=== PATIENT | female | born 1995 | race Two or more races ===

== ENCOUNTER 2018-12-11 13:10 | Emergency (ER) | payer OTHER ==
--- NOTE | 2018-12-11 16:03 | ED Physician Documentation ---
PD HPI URI - Stated complaint Stated Complaint: SORE THROAT - Chief complaint Chief Complaint: Heent - History obtained from History obtained from: Patient - History of Present Illness Timing - onset: How many days ago (2-3) Timing duration: Days Timing details: Gradual onset, Still present Associated symptoms: Sinus pain, Sore throat. No: Nasal congestion, Dry cough Contributing factors: No: Sick contact Similar symptoms before: No diagnosis (has had recurrent sore throat episodes but has had negative strep tests and cultures.) Review of Systems Constitutional: denies: Fever, Chills Ears: denies: Ear pain Nose: reports: Sinus pressure / pain Throat: reports: Sore throat, Swollen tonsils. denies: Dental pain / toothache Respiratory: denies: Cough GI: denies: Nausea, Vomiting, Diarrhea PD PAST MEDICAL HISTORY - Past Medical History Cardiovascular: None Respiratory: None Neuro: None Endocrine/Autoimmune: None - Present Medications Home Medications: Ambulatory Orders Medication Instructions Recorded Confirmed Cephalexin [Keflex] 500 mg PO TID #21 capsule 12/11/18 Cetirizine [ZyrTEC] 10 mg PO DAILY #30 tablet 12/11/18 Dexamethasone [Decadron] 4 mg PO DAILY #5 tablet 12/11/18 Fluconazole [Diflucan] 150 mg PO ONCE #1 tablet 12/11/18 Fluticasone [Flonase] 2 sprays DANE DAILY #1 bottle 12/11/18 - Allergies Allergies/Adverse Reactions: Allergies Allergy/AdvReac Type Severity Reaction Status Date / Time Pertussis Vaccines Allergy Anaphylaxis Verified 12/11/18 13:31 PD ED PE NORMAL - Vitals Vital signs reviewed: Yes - General General: Alert and oriented X 3, No acute distress, Well developed/nourished - HEENT HEENT: Ears normal. No: Pharynx benign (tonsils and throat with redness but not exudate. Anterior adenopathy noted. ) - Neck Neck: Supple, no meningeal sign - Cardiac Cardiac: RRR, No murmur - Respiratory Respiratory: Clear bilaterally Results - Vitals Vitals: Oxygen O2 Source Room air - Labs Labs: Microbiology 12/11/18 16:17 Group A Strep Throat Culture - Preliminary Throat CULTURE IN PROGRESS. RESULTS TO FOLLOW. Laboratory Tests 12/11/18 16:17 Group A Strep Rapid Negative PD MEDICAL DECISION MAKING - ED course Complexity details: considered differential (symptoms seem like throat, but have been negative strep tests. Has congestion, so I think is sinus infection. ), d/w patient Departure - Departure Disposition: 01 Home, Self Care Clinical Impression: Sinusitis Qualifiers: Sinusitis location: unspecified location Chronicity: acute Recurrence: recurrent Qualified Code(s): J01.91 - Acute recurrent sinusitis, unspecified Condition: Stable Record reviewed to determine appropriate education?: Yes Instructions: ED Sinusitis Abx Tx Follow-Up: [facility] [Provider Group] Prescriptions: Cephalexin [Keflex] 500 mg PO TID #21 capsule Cetirizine [ZyrTEC] 10 mg PO DAILY #30 tablet Dexamethasone [Decadron] 4 mg PO DAILY #5 tablet Fluconazole [Diflucan] 150 mg PO ONCE #1 tablet Fluticasone [Flonase] 2 sprays DANE DAILY #1 bottle Comments: I think your throat symptoms are coming from sinus congestion and intermittent infection. We will treated with cephalexin antibiotic 3 times a day for a week and Decadron steroid daily for 5 days for the current infection and inflammation. Use cetirizine antihistamine daily for 1 or 2 months and also Flonase nasal spray daily for 1 or 2 months and see if overall you have less sinus symptoms and do not have the recurrent throat symptoms. Follow-up with your primary care if not improved over the next few days. At the end of the week of the antibiotics he can use a oral antifungal to prevent yeast infection. Tylenol or ibuprofen if needed for fevers or pains. Discharge Date/Time: 12/11/18 16:25
[2018-12-11] MEDS ORDERED: DEXAMETHASONE 10 MG/ML VIAL PO STA (16:04)
[2018-12-11] MEDS ORDERED: cephALEXin 250 MG CAPSULE PO STA (16:04)
[2018-12-11] MEDS ORDERED: CETIRIZINE 10 MG TABLET PO STA (16:04)
[2018-12-11] MEDS ORDERED: CHERRY SYRUP 10 ML UDC PO ONE (16:15)
[2018-12-11 16:21] VITALS: BP 127/69
== END 2018-12-11 16:25 | disposition home or self-care (01) ==
LOC: ED 13:10
DX: J01.91 Acute recurrent sinusitis, unspecified (principal)
CPT/HCPCS: 87070; 87430; 99283; A9270

== ENCOUNTER 2018-12-24 18:13 | Emergency (ER) | payer OTHER, MEDICAID ==
[2018-12-24 18:50] LABS: BILIRUBIN,URINE NEGATIVE (NEGATIVE); GLUCOSE, URINE (UA) NEGATIVE (NEGATIVE); KETONES,URINE (UA) NEGATIVE (NEGATIVE); LEUKOCYTE ESTERASE, URINE NEGATIVE (NEGATIVE); NITRITE,URINE NEGATIVE (NEGATIVE); OCCULT BLOOD,URINE TRACE-INTA (NEGATIVE); PROTEIN,URINE NEGATIVE (NEGATIVE); UROBILINOGEN,URINE 0.2 (NORMAL) E.U./dL (NORMAL)
[2018-12-24 18:54] LABS: CLARITY,URINE CLEAR (CLEAR); HCG UR QUAL NEGATIVE
--- NOTE | 2018-12-24 19:24 | ED Physician Documentation ---
History of Present Illness - Stated complaint Stated Complaint: FEM - Chief complaint Chief Complaint: General - History obtained from History obtained from: Patient - History of Present Illness Timing: Other (23-year-old woman who was diagnosed with clinical strep throat about 10 days ago and was on antibiotics. She has since finished the antibiotics but developed vaginal itching. She took fluconazole which was briefly helpful but then she kept itching at it and put some creams on it and it kept getting worse and now is quite inflamed. She denies vaginal discharge. She is on her menses right now.) Review of Systems Constitutional: denies: Fever, Chills Throat: denies: Dental pain / toothache, Sore throat Cardiac: denies: Chest pain / pressure, Palpitations Respiratory: denies: Dyspnea, Cough PD PAST MEDICAL HISTORY - Past Medical History Cardiovascular: None Respiratory: None Neuro: None Endocrine/Autoimmune: None - Past Surgical History Past Surgical History: Yes - Present Medications Home Medications: Ambulatory Orders Medication Instructions Recorded Confirmed Cephalexin [Keflex] 500 mg PO TID #21 capsule 12/11/18 Dexamethasone [Decadron] 4 mg PO DAILY #5 tablet 12/11/18 Fluconazole [Diflucan] 150 mg PO ONCE #1 tablet 12/11/18 Fluticasone [Flonase] 2 sprays DANE DAILY #1 bottle 12/11/18 RX: Cetirizine [ZyrTEC] 10 mg PO DAILY #30 tablet 12/11/18 RX: Triamcinolone 0.1% Oint 1 applic TOP BID #2 tube 12/24/18 [Kenalog 0.1% Oint] hydrOXYzine pamoate [Hydroxyzine 1 - 2 tab PO Q6H PRN #20 capsule 12/24/18 Pamoate] - Allergies Allergies/Adverse Reactions: Allergies Allergy/AdvReac Type Severity Reaction Status Date / Time Pertussis Vaccines Allergy Anaphylaxis Verified 12/24/18 18:19 - Social History Does the pt smoke?: No Smoking Status: Never smoker Does the pt drink ETOH?: No Does the pt have substance abuse?: No - Immunizations Immunizations are current?: Yes PD ED PE NORMAL - Vitals Vital signs reviewed: Yes - General General: Alert and oriented X 3, No acute distress - Abdomen Abdomen: Normal bowel sounds, Soft, Non tender - Female Female : Other (Labia quite red, mild swelling. On menses, no other obvious dischg) - Back Back: No CVA TTP, No spinal TTP - Derm Derm: No rash - Neuro Neuro: Alert and oriented X 3, Normal speech Results - Vitals Vitals: Vital Signs - 24 hr 12/24/18 12/24/18 18:19 20:06 Temperature 36.6 C 36.5 C Heart Rate 85 93 Respiratory 16 16 Rate Blood Pressure 121/79 135/95 H O2 Saturation 99 100 Oxygen O2 Source Room air - Labs Labs: Microbiology 12/24/18 19:30 Wet Prep - Final Vaginal Laboratory Tests 12/24/18 18:40 Urine Color YELLOW Urine Clarity CLEAR Urine pH 6.0 Ur Specific [place] 1.010 Urine Protein NEGATIVE Urine Glucose (UA) NEGATIVE Urine Ketones NEGATIVE Urine Occult Blood TRACE-INTA Urine Nitrite NEGATIVE Urine Bilirubin NEGATIVE Urine Urobilinogen 0.2 (NORMAL) Ur Leukocyte Esterase NEGATIVE Ur Microscopic Review NOT INDICATED Urine Culture Comments NOT INDICATED Urine HCG, Qual NEGATIVE PD MEDICAL DECISION MAKING - ED course ED course: There is no evidence of yeast infection now, seems more like a dermatitis related to the variety of medications he she was using on her vagina. She was advised not to use so many creams on her vagina and was given a moderate strength steroid. Departure - Departure Disposition: 01 Home, Self Care Clinical Impression: Contact dermatitis Qualifiers: Contact dermatitis type: irritant Contact dermatitis trigger: drugs in contact with skin Qualified Code(s): L24.4 - Irritant contact dermatitis due to drugs in contact with skin Condition: Good Record reviewed to determine appropriate education?: Yes Instructions: ED Dermatitis Contact Prescriptions: hydrOXYzine pamoate [Hydroxyzine Pamoate] 1 - 2 tab PO Q6H PRN #20 capsule PRN Reason: Itching RX: Triamcinolone 0.1% Oint [Kenalog 0.1% Oint] 1 applic TOP BID #2 tube Comments: Call your doctor to arrange a follow-up appointment, make the next available appointment. In the interim, return anytime if worse or if new symptoms develop. Discharge Date/Time: 12/24/18 20:09
[2018-12-24] MEDS ORDERED: NYSTATIN CREAM 15 GM TUBE TOP STA (19:29)
[2018-12-24] MEDS ORDERED: hydrOXYzine PAMOATE 25 MG CAPSULE PO STA (20:00)
[2018-12-24 20:08] VITALS: BP 135/95
== END 2018-12-24 20:09 | disposition home or self-care (01) ==
LOC: ED 18:13
DX: L24.4 Irritant contact dermatitis due to drugs in contact with skin (principal)
CPT/HCPCS: 81003; 81025; 87210; 87491; 87591; 99283; A9270; 81001; 87086

== ENCOUNTER 2019-03-05 09:53 | Emergency (ER) | payer OTHER, MEDICAID ==
[2019-03-05 10:00] VITALS: BP 126/79
--- NOTE | 2019-03-05 10:42 | ED Physician Documentation ---
PD HPI Fall - Stated complaint Stated Complaint: GLF/BACK PX - Chief complaint Chief Complaint: General - History obtained from History obtained from: Patient, Family - History of Present Illness Mechanism of injury: Slipped Fall distance: Standing position Where injury occurred: Work Timing - onset: Enter time (0800), Today Injury(ies) location: Right Upper Extremity, Left Lower Extremity Quality of pain: Pain, Throbbing Associated symptoms: No: LOC, AMS, Amnesia, Seizures Symptoms improve with: Rest Worsens with: Movement, Palpation Contributing factors: No: Anticoagulated Similar symptoms before: Has not had sx before Recently seen: Not recently seen - Additional information Additional information: Previously well 23-year-old female was at work today when she slipped on some water as she was approaching a client. She fell onto her outstretched right hand and is complaining of pain in her volar wrist and posterior shoulder as well as in her left knee and foot. She is able to walk and she states the pain in her knee has improved. Review of Systems Constitutional: denies: Fever Eyes: denies: Decreased vision Ears: denies: Ear pain Nose: denies: Rhinorrhea / runny nose, Congestion Throat: denies: Sore throat Cardiac: denies: Chest pain / pressure, Palpitations Respiratory: denies: Dyspnea, Cough GI: denies: Nausea, Vomiting : denies: Dysuria PD PAST MEDICAL HISTORY - Past Medical History Cardiovascular: None Respiratory: None Neuro: None Endocrine/Autoimmune: None - Past Surgical History Past Surgical History: Yes - Present Medications Home Medications: Ambulatory Orders Medication Instructions Recorded Confirmed Cephalexin [Keflex] 500 mg PO TID #21 capsule 12/11/18 Cetirizine [ZyrTEC] 10 mg PO DAILY #30 tablet 12/11/18 Fluconazole [Diflucan] 150 mg PO ONCE #1 tablet 12/11/18 Fluticasone [Flonase] 2 sprays DANE DAILY #1 bottle 12/11/18 dexAMETHasone [Decadron] 4 mg PO DAILY #5 tablet 12/11/18 Triamcinolone 0.1% Oint [Kenalog 1 applic TOP BID #2 tube 12/24/18 0.1% Oint] hydrOXYzine pamoate [Hydroxyzine 1 - 2 tab PO Q6H PRN #20 capsule 12/24/18 Pamoate] - Allergies Allergies/Adverse Reactions: Allergies Allergy/AdvReac Type Severity Reaction Status Date / Time Pertussis Vaccines Allergy Anaphylaxis Verified 03/05/19 09:58 - Social History Does the pt smoke?: No Smoking Status: Never smoker Does the pt drink ETOH?: No Does the pt have substance abuse?: No - Immunizations Immunizations are current?: Yes - POLST Patient has POLST: No PD ED PE NORMAL - Vitals Vital signs reviewed: Yes (normal ) - General General: Alert and oriented X 3, No acute distress, Well developed/nourished - HEENT HEENT: Atraumatic, PERRL, EOMI - Neck Neck: Supple, no meningeal sign, No bony TTP - Respiratory Respiratory: No respiratory distress - Back Back: No CVA TTP, No spinal TTP - Derm Derm: Normal color, Warm and dry, No rash - Extremities Extremities: No deformity, No edema, Other (There is Tenderness to the volar wrist on the right side there is no tenderness to the anatomic snuffbox. She has fair range of motion and and the distal neurovascular components are intact. Examination of the shoulder reveals a fair range of motion that is somewhat limited by pain. She does have some pain to palpation across the rhomboids and over the supraspinatus. She has anterior deltoid pain as well. Examination of the left knee shows minimal point tenderness and ligaments are stable there is no evidence of joint effusion and distal neurovascular components are intact. Her gait is normal.) - Neuro Neuro: Alert and oriented X 3, wool washer 2-12 intact, No motor deficit, No sensory deficit, Normal speech Eye Opening: Spontaneous Motor: Obeys Commands Verbal: Oriented GCS Score: 15 - Psych Psych: Normal mood, Normal affect Results - Vitals Vitals: Vital Signs - 24 hr 03/05/19 09:55 Temperature 36.7 C Heart Rate 89 Respiratory 14 Rate Blood Pressure 126/79 O2 Saturation 100 Oxygen O2 Source Room air - Rads (name of study) wrist Radiology: Prelim report reviewed (Impression: normal wrist radiography.), EMP read indepedently, See rad report shoulder Radiology: Prelim report reviewed (Impression: Normal shoulder radiography.), EMP read indepedently, See rad report PD MEDICAL DECISION MAKING - ED course Complexity details: reviewed results, re-evaluated patient, considered differential, d/w patient ED course: 23-year-old female with a fall at work slipping on wet floor has a minimal sprain of her shoulder and wrist on the right side. We will place her into a sling for comfort. Departure - Departure Disposition: 01 Home, Self Care Clinical Impression: Sprain of shoulder, right Qualifiers: Encounter type: initial encounter Shoulder sprain type: unspecified sprain Qualified Code(s): S43.401A - Unspecified sprain of right shoulder joint, initial encounter Contusion, wrist Qualifiers: Encounter type: initial encounter Laterality: right Qualified Code(s): S60.211A - Contusion of right wrist, initial encounter Condition: Stable Instructions: ED Sprain Shoulder, ED Sprain Wrist Follow-Up: Patrick Beltran [Primary Care Provider] - Forms: Activity restrictions
--- NOTE | 2019-03-05 11:46 | XRAY Report ---
Reason: fall posterior pain Procedure Date: 03/05/2019 Accession Number: [id number] / [id number] Procedure: XR - Shoulder 3 View RT CPT Code: FULL RESULT: EXAM: RIGHT SHOULDER RADIOGRAPHY EXAM DATE: 03/05/2019 11:29 AM. CLINICAL HISTORY: Fall posterior pain. COMPARISON: None. TECHNIQUE: 3 views. FINDINGS: Bones: Normal. No fracture or bone lesion. Joints: The glenohumeral and acromioclavicular joints are normal. Soft tissues: The visualized hemithorax is unremarkable. No soft tissue swelling. IMPRESSION: Normal shoulder radiography. RADIA
--- NOTE | 2019-03-05 11:47 | XRAY Report ---
Reason: FOOSH with volar wrist pain Procedure Date: 03/05/2019 Accession Number: [id number] / [id number] Procedure: XR - Wrist 4 View RT CPT Code: FULL RESULT: EXAM: RIGHT WRIST RADIOGRAPHY EXAM DATE: 03/05/2019 11:29 AM. CLINICAL HISTORY: FOOSH with volar wrist pain. COMPARISON: None. TECHNIQUE: 4 views. FINDINGS: Bones: Normal. No fractures or bone lesions. Joints: Normal. No subluxations. Soft Tissues: Normal. No soft tissue swelling. IMPRESSION: Normal wrist radiography. RADIA
== END 2019-03-05 12:00 | disposition home or self-care (01) ==
LOC: ED 09:53
DX: S43.401A Unspecified sprain of right shoulder joint, initial encounter (principal); S60.211A Contusion of right wrist, initial encounter; M25.562 Pain in left knee; W01.0XXA Fall on same level from slipping, tripping and stumbling without subsequent striking against object, initial encounter; Y93.01 Activity, walking, marching and hiking; Y99.0 Civilian activity done for income or pay
CPT/HCPCS: 99282; 99283

== ENCOUNTER 2019-03-25 14:47 | Emergency (ER) | payer OTHER, MEDICAID ==
[2019-03-25 15:22] LABS: BILIRUBIN,URINE NEGATIVE (NEGATIVE); GLUCOSE, URINE (UA) NEGATIVE (NEGATIVE); KETONES,URINE (UA) NEGATIVE (NEGATIVE); LEUKOCYTE ESTERASE, URINE SMALL (NEGATIVE); NITRITE,URINE NEGATIVE (NEGATIVE); OCCULT BLOOD,URINE SMALL (NEGATIVE); PH,URINE 5.5 PH (5.0-7.5); PROTEIN,URINE 30 mg/dL (NEGATIVE); UROBILINOGEN,URINE 0.2 (NORMAL) E.U./dL (NORMAL)
[2019-03-25 15:23] LABS: CLARITY,URINE CLEAR (CLEAR)
[2019-03-25 15:24] LABS: HCG UR QUAL NEGATIVE
[2019-03-25 15:44] LABS: BASOPHILS # (AUTO) 0.1 10^3/uL (0.0-0.1); BASOPHILS % (AUTO) 0.5 %; EOSINOPHILS # (AUTO) 0.2 10^3/uL (0.0-0.7); HGB - HEMOGLOBIN 12.5 g/dL (12.0-16.0); LYMPHOCYTES # (AUTO) 2.1 10^3/uL (1.5-3.5); LYMPHOCYTES % (AUTO) 21.1 %; MEAN CORPUSCULAR HEMOGLOBIN 29.5 pg (27.0-31.0); MEAN CORPUSCULAR HGB CONC 33.4 g/dL (32.0-36.0); MEAN CORPUSCULAR VOLUME 88.3 fL (81.0-99.0); MEAN PLATELET VOLUME 8.5 fL (7.9-10.8); MONOCYTES # (AUTO) 0.8 10^3/uL (0.0-1.0); MONOCYTES % (AUTO) 7.9 %; NEUTROPHILS # (AUTO) 6.7 10^3/uL (1.5-6.6); NEUTROPHILS % (AUTO) 68.5 %; PLT - PLATELET COUNT 327 10^3/uL (130-450); RED BLOOD COUNT 4.24 10^6/uL (4.20-5.40); RED CELL DISTRIBUTION WIDTH 12.8 % (12.0-15.0); WHITE BLOOD COUNT 9.7 x10^3/uL (4.8-10.8)
[2019-03-25 15:54] LABS: BACTERIA,URINE Few /HPF (None Seen); RBC,URINE 0-5 /HPF (0-5); SQUAMOUS EPITHELIAL CELL,UR MANY Squamous (<= Few)
[2019-03-25 15:55] LABS: YEAST,URINE PRESENT
[2019-03-25 16:00] LABS: ALBUMIN 4.3 g/dL (3.2-5.5); ALBUMIN/GLOBULIN RATIO 1.3 (1.0-2.2); BILIRUBIN,TOTAL 0.6 mg/dL (0.2-1.0); CALCIUM 9.6 mg/dL (8.5-10.3); CREATININE 0.8 mg/dL (0.4-1.0); TOTAL PROTEIN 7.6 g/dL (6.7-8.2)
--- NOTE | 2019-03-25 17:50 | ED Physician Documentation ---
PD HPI FEMALE - Stated complaint Stated Complaint: FEMALE - Chief complaint Chief Complaint: Abd Pain - History obtained from History obtained from: Patient - History of Present Illness Timing - onset: How many days ago (several) Timing - duration: Days Timing - details: Gradual onset, Still present Associated symptoms: Pelvic pain (crampy), Vaginal discharge, Dysuria, Other (red blood rectally when wiping after BM) Contributing factors: Sexually active. No: Exposed to STD Similar symptoms before: Diagnosis (UTIs and yeast infections. Has had hemorrhoids in the past as well.) Recently seen: Not recently seen Review of Systems Constitutional: denies: Fever, Chills, Myalgias Nose: denies: Rhinorrhea / runny nose, Congestion Throat: denies: Sore throat Respiratory: denies: Cough GI: reports: Bloody / black stool (red with wiping). denies: Nausea, Vomiting, Constipation, Diarrhea : reports: Dysuria (and hurts with wiping), Discharge Skin: denies: Rash, Lesions Musculoskeletal: denies: Neck pain, Back pain PD PAST MEDICAL HISTORY - Past Medical History Cardiovascular: None Respiratory: None Neuro: None Endocrine/Autoimmune: None - Past Surgical History Past Surgical History: Yes - Present Medications Home Medications: Ambulatory Orders Medication Instructions Recorded Confirmed Cephalexin [Keflex] 500 mg PO TID #21 capsule 12/11/18 Cetirizine [ZyrTEC] 10 mg PO DAILY #30 tablet 12/11/18 Fluconazole [Diflucan] 150 mg PO ONCE #1 tablet 12/11/18 Fluticasone [Flonase] 2 sprays DANE DAILY #1 bottle 12/11/18 dexAMETHasone [Decadron] 4 mg PO DAILY #5 tablet 12/11/18 Triamcinolone 0.1% Oint [Kenalog 1 applic TOP BID #2 tube 12/24/18 0.1% Oint] hydrOXYzine pamoate [Hydroxyzine 1 - 2 tab PO Q6H PRN #20 capsule 12/24/18 Pamoate] Fluconazole [Diflucan] 150 mg PO ONCE #2 tablet 03/25/19 Hydrocortisone Acetate [Anucort-Hc] 25 mg RC BID #10 supp.rect 03/25/19 Metronidazole [Flagyl] 500 mg PO BID #14 tablet 03/25/19 - Allergies Allergies/Adverse Reactions: Allergies Allergy/AdvReac Type Severity Reaction Status Date / Time Pertussis Vaccines Allergy Anaphylaxis Verified 03/25/19 14:56 - Social History Does the pt smoke?: No Smoking Status: Never smoker Does the pt drink ETOH?: No Does the pt have substance abuse?: No - Immunizations Immunizations are current?: Yes - POLST Patient has POLST: No PD ED PE NORMAL - Vitals Vital signs reviewed: Yes - General General: Alert and oriented X 3, No acute distress, Well developed/nourished - HEENT HEENT: Pharynx benign - Neck Neck: Supple, no meningeal sign, No adenopathy - Cardiac Cardiac: RRR, No murmur - Respiratory Respiratory: Clear bilaterally - Abdomen Abdomen: Soft, Non tender - Female Female : Tipple Greaser present, Other (redness at inner labia with some white thicker discharge in creases. Vault with thinner milky discharge as well, with some malodor. ) - Rectal Rectal: Other (external small nontender hemorrhoid. Moderate soft hemorrhoid internally. No blood in vault on exam. ) - Derm Derm: Normal color, Warm and dry Results - Vitals Vitals: Vital Signs - 24 hr 03/25/19 03/25/19 03/25/19 14:54 17:46 19:10 Temperature 36.7 C 36.9 C Heart Rate 81 71 Respiratory 18 18 17 Rate Blood Pressure 117/73 111/71 O2 Saturation 98 100 Oxygen O2 Source Room air - Labs Labs: Microbiology 03/25/19 18:40 Wet Prep - Final Vaginal Laboratory Tests 03/25/19 03/25/19 03/25/19 15:07 15:25 15:25 WBC 9.7 RBC 4.24 Hgb 12.5 Hct 37.4 MCV 88.3 MCH 29.5 MCHC 33.4 RDW 12.8 Plt Count 327 MPV 8.5 Neut # (Auto) 6.7 H Lymph # (Auto) 2.1 [place] # (Auto) 0.8 Eos # (Auto) 0.2 Baso # (Auto) 0.1 Absolute Nucleated RBC 0.00 Nucleated RBC % 0.0 Sodium 140 Potassium 4.3 Chloride 106 Carbon Dioxide 23 Anion Gap 11.0 BUN 14 Creatinine 0.8 Estimated GFR (MDRD) 90 Glucose 91 Calcium 9.6 Total Bilirubin 0.6 AST 22 ALT 23 Alkaline Phosphatase 49 Total Protein 7.6 Albumin 4.3 Globulin 3.3 Albumin/Globulin Ratio 1.3 Lipase 22 Urine Color YELLOW Urine Clarity CLEAR Urine pH 5.5 Ur Specific [place] >=1.030 H Urine Protein 30 H Urine Glucose (UA) NEGATIVE Urine Ketones NEGATIVE Urine Occult Blood SMALL H Urine Nitrite NEGATIVE Urine Bilirubin NEGATIVE Urine Urobilinogen 0.2 (NORMAL) Ur Leukocyte Esterase SMALL H Urine RBC 0-5 Urine WBC 6-10 H Ur Squamous Epith Cells MANY Squamous H Urine Bacteria Few Urine Yeast PRESENT Ur Microscopic Review INDICATED Urine Culture Comments NOT INDICATED Urine HCG, Qual NEGATIVE Chlam trachomat DNA PCR N.gonorrhoeae DNA (PCR) T. vaginalis (PCR) 03/25/19 18:40 WBC RBC Hgb Hct MCV MCH MCHC RDW Plt Count MPV Neut # (Auto) Lymph # (Auto) [place] # (Auto) Eos # (Auto) Baso # (Auto) Absolute Nucleated RBC Nucleated RBC % Sodium Potassium Chloride Carbon Dioxide Anion Gap BUN Creatinine Estimated GFR (MDRD) Glucose Calcium Total Bilirubin AST ALT Alkaline Phosphatase Total Protein Albumin Globulin Albumin/Globulin Ratio Lipase Urine Color Urine Clarity Urine pH Ur Specific [place] Urine Protein Urine Glucose (UA) Urine Ketones Urine Occult Blood Urine Nitrite Urine Bilirubin Urine Urobilinogen Ur Leukocyte Esterase Urine RBC Urine WBC Ur Squamous Epith Cells Urine Bacteria Urine Yeast Ur Microscopic Review Urine Culture Comments Urine HCG, Qual Chlam trachomat DNA PCR NEGATIVE N.gonorrhoeae DNA (PCR) NEGATIVE T. vaginalis (PCR) NEGATIVE PD MEDICAL DECISION MAKING - ED course Complexity details: considered differential (presume hemorrhoid bleeding, but no blood present on exam. For vaginal symptoms, exam is c/w yeast and likely BV.), d/w patient Departure - Departure Disposition: 01 Home, Self Care Clinical Impression: Hemorrhoid Qualifiers: Hemorrhoid type: unspecified Qualified Code(s): K64.9 - Unspecified hemorrhoids Vaginitis Qualifiers: Chronicity: acute Qualified Code(s): N76.0 - Acute vaginitis Condition: Stable Record reviewed to determine appropriate education?: Yes Instructions: ED Hemorrhoids, ED Vaginosis Bacterial, ED Vaginal Infec Fungal Aditi Follow-Up: Patrick Beltran [Primary Care Provider] - Prescriptions: Fluconazole [Diflucan] 150 mg PO ONCE #2 tablet Hydrocortisone Acetate [Anucort-Hc] 25 mg RC BID #10 supp.rect Metronidazole [Flagyl] 500 mg PO BID #14 tablet Comments: Does look like probably a combination of yeast and bacterial vaginitis. Use the antifungal tablets every 3 days x 2 and the antibiotics daily for the next week. I presume there is some internal hemorrhoids causing your rectal bleeding and use the anti-inflammatory suppository once or twice daily over the next several days until that seems improved. Recheck if all of this is not improved over the next several days or so. Discharge Date/Time: 03/25/19 19:23
[2019-03-25] MEDS ORDERED: FLUCONAZOLE 100 MG TABLET PO STA ×2 (18:13→18:52)
[2019-03-25] MEDS ORDERED: NAPROXEN 250 MG TABLET PO STA (18:13)
[2019-03-25] MEDS ORDERED: metroNIDAZOLE 250 MG TABLET PO STA (18:52)
[2019-03-25 19:11] VITALS: BP 111/71
[2019-03-26 00:33] LABS: TRICHOMONAS VAGINALIS DNA NEGATIVE (NEGATIVE)
== END 2019-03-25 19:23 | disposition home or self-care (01) ==
LOC: ED 14:47
DX: N76.0 Acute vaginitis (principal); K64.8 Other hemorrhoids; K64.4 Residual hemorrhoidal skin tags
CPT/HCPCS: 36415; 80053; 81001; 81025; 83690; 85025; 87210; 87491; 87591; 87661; 99283; A9270; 81003; 87086

== ENCOUNTER 2019-08-01 16:36 | Emergency (ER) | payer MEDICAID ==
[2019-08-01 16:44] VITALS: BP 150/96
--- NOTE | 2019-08-01 18:18 | ED Physician Documentation ---
PD HPI URI - Stated complaint Stated Complaint: URI - Chief complaint Chief Complaint: Resp - History obtained from History obtained from: Patient - History of Present Illness Timing - onset: Other (Previously healthy young woman has had 2 days of nasal congestion, sore throat, nonproductive cough. No primary shortness of breath but feels it is hard to breathe because of the congestion. No fevers. Tried Benadryl without relief.) Review of Systems Constitutional: denies: Fever, Chills Nose: reports: Rhinorrhea / runny nose, Congestion. denies: Sinus pressure / pain Throat: reports: Sore throat Respiratory: reports: Cough. denies: Dyspnea PD PAST MEDICAL HISTORY - Past Medical History Cardiovascular: None Respiratory: None Neuro: None Endocrine/Autoimmune: None - Past Surgical History Past Surgical History: Yes - Present Medications Home Medications: Ambulatory Orders Medication Instructions Recorded Confirmed Cephalexin [Keflex] 500 mg PO TID #21 capsule 12/11/18 Cetirizine [ZyrTEC] 10 mg PO DAILY #30 tablet 12/11/18 Fluconazole [Diflucan] 150 mg PO ONCE #1 tablet 12/11/18 Fluticasone [Flonase] 2 sprays DANE DAILY #1 bottle 12/11/18 dexAMETHasone [Decadron] 4 mg PO DAILY #5 tablet 12/11/18 Triamcinolone 0.1% Oint [Kenalog 1 applic TOP BID #2 tube 12/24/18 0.1% Oint] hydrOXYzine pamoate [Hydroxyzine 1 - 2 tab PO Q6H PRN #20 capsule 12/24/18 Pamoate] Fluconazole [Diflucan] 150 mg PO ONCE #2 tablet 03/25/19 Hydrocortisone Acetate [Anucort-Hc] 25 mg RC BID #10 supp.rect 03/25/19 Metronidazole [Flagyl] 500 mg PO BID #14 tablet 03/25/19 Guaifenesin/Pseudoephedrne HCl 1 each PO BID PRN #20 tab.er.12h 08/01/19 [Mucinex D ER 600-60 mg Tablet] guaiFENesin/CODEINE [Robitussin AC] 5 - 10 ml PO Q6H PRN #120 ml 08/01/19 - Allergies Allergies/Adverse Reactions: Allergies Allergy/AdvReac Type Severity Reaction Status Date / Time Pertussis Vaccines Allergy Anaphylaxis Verified 08/01/19 16:40 - Social History Does the pt smoke?: No Smoking Status: Never smoker Does the pt drink ETOH?: No Does the pt have substance abuse?: No - Immunizations Immunizations are current?: Yes - POLST Patient has POLST: No PD ED PE NORMAL - Vitals Vital signs reviewed: Yes - General General: Alert and oriented X 3, No acute distress - HEENT HEENT: Other (Mildly red tonsillar pillars without exudates or swelling, nasal congestion. TMs normal.) - Neck Neck: Supple, no meningeal sign, No bony TTP, No adenopathy - Cardiac Cardiac: RRR, No murmur - Respiratory Respiratory: No respiratory distress, Clear bilaterally - Derm Derm: No rash - Neuro Neuro: Alert and oriented X 3, Normal speech Results - Vitals Vitals: Vital Signs - 24 hr 08/01/19 16:40 Temperature 37.3 C Heart Rate 103 H Respiratory 18 Rate Blood Pressure 150/96 H O2 Saturation 99 Oxygen O2 Source Room air - Labs Labs: Laboratory Tests 08/01/19 08/01/19 16:48 16:48 Influenza A (Rapid) Negative Influenza B (Rapid) Negative Group A Strep Rapid Negative Departure - Departure Disposition: 01 Home, Self Care Clinical Impression: Viral URI Condition: Good Record reviewed to determine appropriate education?: Yes Instructions: ED URI Viral Prescriptions: guaiFENesin/CODEINE [Robitussin AC] 5 - 10 ml PO Q6H PRN #120 ml PRN Reason: Cough Guaifenesin/Pseudoephedrne HCl [Mucinex D ER 600-60 mg Tablet] 1 each PO BID PRN #20 tab.er.12h PRN Reason: congestion Comments: Take it easy and drink plenty of fluids. Return for new worsening symptoms. As discussed, your syndrome is consistent with upper respiratory viral infection. Your blood pressure was elevated today on check into the emergency department. This does not mean that you have hypertension, it is a common phenomenon to come to the emergency department and have elevated blood pressure. I recommend that you see your primary care physician within the week to have it rechecked when you are feeling better.
== END 2019-08-01 18:24 | disposition home or self-care (01) ==
LOC: ED 16:36
DX: J06.9 Acute upper respiratory infection, unspecified (principal); R03.0 Elevated blood-pressure reading, without diagnosis of hypertension
CPT/HCPCS: 87070; 87077; 87275; 87276; 87430; 99283

== ENCOUNTER 2020-01-11 14:35 | Emergency (ER) | payer MEDICAID ==
--- NOTE | 2020-01-11 15:07 | ED Physician Documentation ---
PD HPI DYSPNEA - Stated complaint Stated Complaint: SOA - Chief complaint Chief Complaint: Resp - History obtained from History obtained from: Patient (24-year-old woman with history of childhood asthma presents with 2 weeks of exertional dyspnea and chest pressure. It is somewhat present at rest 2. She saw her doctor and was diagnosed with allergies. She denies any cough, runny nose, watery eyes. She just short of breath. No pedal edema or calf pain. No possibility of . No other history of heart or lung disease. No recent travel.) Review of Systems Constitutional: denies: Fever, Chills, Fatigue Nose: denies: Rhinorrhea / runny nose, Congestion Throat: denies: Dental pain / toothache, Sore throat Cardiac: reports: Chest pain / pressure. denies: Palpitations, Pedal edema, Calf pain Respiratory: reports: Dyspnea. denies: Cough, Hemoptysis, Wheezing PD PAST MEDICAL HISTORY - Past Medical History Cardiovascular: None Respiratory: None Neuro: None Endocrine/Autoimmune: None - Past Surgical History Past Surgical History: Yes - Present Medications Home Medications: Ambulatory Orders Medication Instructions Recorded Confirmed Albuterol Sulf [Ventolin Hfa 1 - 2 puffs INH Q4HR PRN #1 inhaler 01/11/20 Inhaler] Loratadine [Claritin] 10 mg PO 01/11/20 - Allergies Allergies/Adverse Reactions: Allergies Allergy/AdvReac Type Severity Reaction Status Date / Time Pertussis Vaccines Allergy Anaphylaxis Verified 01/11/20 14:50 - Social History Does the pt smoke?: No Smoking Status: Never smoker Does the pt drink ETOH?: No Does the pt have substance abuse?: No - Immunizations Immunizations are current?: Yes - POLST Patient has POLST: No PD ED PE NORMAL - Vitals Vital signs reviewed: Yes - General General: Alert and oriented X 3, No acute distress - HEENT HEENT: PERRL, EOMI - Neck Neck: Supple, no meningeal sign, No bony TTP - Cardiac Cardiac: RRR, No murmur - Respiratory Respiratory: No respiratory distress, Other (mild diminished, good motion though, no wheeze) - Abdomen Abdomen: Soft, Non tender - Back Back: No CVA TTP, No spinal TTP - Derm Derm: Normal color, Warm and dry - Extremities Extremities: No edema, No calf tenderness / cord - Neuro Neuro: Alert and oriented X 3, Normal speech Results - Vitals Vitals: Vital Signs - 24 hr 01/11/20 01/11/20 01/11/20 14:43 15:43 16:26 Temperature 36.7 C Heart Rate 112 H 102 H 111 H Respiratory 18 20 22 Rate Blood Pressure 136/89 H 134/74 H O2 Saturation 99 100 100 Oxygen O2 Source Room air - EKG (time done) 1524 Rate: Rate (enter#) (102) Rhythm: Sinus tachycardia [place]: Normal Intervals: Normal CO QRS: Normal Ischemia: Normal ST segments Computer interpretation: Agree with computer - Labs Labs: Laboratory Tests 01/11/20 01/11/20 01/11/20 15:30 15:30 15:30 WBC 7.8 RBC 4.79 Hgb 14.2 Hct 43.5 MCV 90.8 MCH 29.6 MCHC 32.6 RDW 12.4 Plt Count 352 MPV 10.3 Neut # (Auto) 4.9 Lymph # (Auto) 1.9 Riley # (Auto) 0.7 Eos # (Auto) 0.3 Baso # (Auto) 0.0 Absolute Nucleated RBC 0.00 Nucleated RBC % 0.0 D-Dimer 258.3 H Sodium 134 L Potassium 3.6 Chloride 102 Carbon Dioxide 23 Anion Gap 9.0 BUN 14 Creatinine 0.8 Estimated GFR (MDRD) 89 Glucose 110 H Calcium 9.4 Total Bilirubin 0.7 AST 28 ALT 30 Alkaline Phosphatase 52 Troponin I High Sens Total Protein 8.3 H Albumin 4.3 Globulin 4.0 Albumin/Globulin Ratio 1.1 Lipase 27 01/11/20 15:30 WBC RBC Hgb Hct MCV MCH MCHC RDW Plt Count MPV Neut # (Auto) Lymph # (Auto) Riley # (Auto) Eos # (Auto) Baso # (Auto) Absolute Nucleated RBC Nucleated RBC % D-Dimer Sodium Potassium Chloride Carbon Dioxide Anion Gap BUN Creatinine Estimated GFR (MDRD) Glucose Calcium Total Bilirubin AST ALT Alkaline Phosphatase Troponin I High Sens < 2.3 L Total Protein Albumin Globulin Albumin/Globulin Ratio Lipase - Rads (name of study) CT pulmonary angiogram Radiology: EMP read contemporaneously (Normal) 1 view chest x-ray Radiology: EMP read contemporaneously (Normal) PD MEDICAL DECISION MAKING - ED course ED course: This is a 24-year-old woman who presents with atypical chest pain and exertional shortness of breath. Differential diagnosis is broad and includes anemia, ACS, PE, pneumonia, pneumothorax. Subsequently all of these entities were ruled out. Cardiac work-up was negative. D-dimer was mildly positive which was necessary given mild tachycardia and control use but followed by a CT pulmonary angiogram which was negative. Lung sounds were slightly diminished and she has a history of childhood asthma she is she will trial albuterol pending follow-up with her doctor. Signs and symptoms that would necessitate urgent reevaluation were discussed. Departure - Departure Disposition: Home, Self Care Clinical Impression: Dyspnea Qualifiers: Dyspnea type: dyspnea on exertion Qualified Code(s): R06.00 - Dyspnea, unspecified Condition: Good Record reviewed to determine appropriate education?: Yes Instructions: ED Dyspnea Shortness of Breath Prescriptions: Albuterol Sulf [Ventolin Hfa Inhaler] 1 - 2 puffs INH Q4HR PRN #1 inhaler PRN Reason: Shortness Of Air/Wheezing Comments: No clear cause identified for your shortness of breath. We checked for blood clots, that was negative. No evidence of pneumonia either. Your basic blood work was normal, no anemia or evidence of a heart issue. This could be recurrence of your childhood asthma I think it reasonable to try the inhaler and follow-up with your primary care physician. Return for new or worsening symptoms
[2020-01-11 15:45] LABS: BASOPHILS % (AUTO) 0.4 %; EOSINOPHILS # (AUTO) 0.3 10^3/uL (0.0-0.7); EOSINOPHILS % (AUTO) 3.2 %; HGB - HEMOGLOBIN 14.2 g/dL (12.0-16.0); LYMPHOCYTES # (AUTO) 1.9 10^3/uL (1.5-3.5); LYMPHOCYTES % (AUTO) 23.9 %; MEAN CORPUSCULAR HEMOGLOBIN 29.6 pg (27.0-31.0); MEAN CORPUSCULAR HGB CONC 32.6 g/dL (32.0-36.0); MEAN CORPUSCULAR VOLUME 90.8 fL (81.0-99.0); MEAN PLATELET VOLUME 10.3 fL (7.9-10.8); MONOCYTES # (AUTO) 0.7 10^3/uL (0.0-1.0); MONOCYTES % (AUTO) 9.4 %; NEUTROPHILS # (AUTO) 4.9 10^3/uL (1.5-6.6); NEUTROPHILS % (AUTO) 62.7 %; PLT - PLATELET COUNT 352 10^3/uL (130-450); RED BLOOD COUNT 4.79 10^6/uL (4.20-5.40); RED CELL DISTRIBUTION WIDTH 12.4 % (12.0-15.0); WHITE BLOOD COUNT 7.8 x10^3/uL (4.8-10.8)
--- NOTE | 2020-01-11 15:56 | XRAY Report ---
Reason: cough Procedure Date: 01/11/2020 Accession Number: [id number] / [id number] Procedure: XR - Chest 1 View X-Ray CPT Code: 40622 Final Report FULL RESULT: EXAM: CHEST RADIOGRAPHY EXAM DATE: 01/11/2020 03:38 PM. CLINICAL HISTORY: Cough. COMPARISON: None. TECHNIQUE: 1 view. FINDINGS: Lungs/Pleura: No focal opacities evident. No pleural effusion. No pneumothorax. Mediastinum: Within exam limitations, the cardiomediastinal contour is normal. Other: None. IMPRESSION: No acute intrathoracic plain film abnormality. RADIA
[2020-01-11 16:00] LABS: ALBUMIN 4.3 g/dL (3.2-5.5); ALBUMIN/GLOBULIN RATIO 1.1 (1.0-2.2); BILIRUBIN,TOTAL 0.7 mg/dL (0.2-1.0); CALCIUM 9.4 mg/dL (8.5-10.3); CREATININE 0.8 mg/dL (0.4-1.0); TOTAL PROTEIN 8.3 g/dL (6.7-8.2)
[2020-01-11] MEDS ORDERED: IOVERSOL 320 100 ML VIAL IVP ONE ×2 (16:26→17:10)
--- NOTE | 2020-01-11 17:20 | CT Report ---
Reason: dyspnea/PE protocol Procedure Date: 01/11/2020 Accession Number: [id number] / [id number] Procedure: CT - ANGIO CHEST W/WO CPT Code: Final Report FULL RESULT: EXAM: CT ANGIOGRAM CHEST EXAM DATE: 01/11/2020 04:53 PM. CLINICAL HISTORY: Dyspnea/PE protocol. COMPARISON: None. TECHNIQUE: Routine helical imaging was performed through the chest in the pulmonary arterial phase. IV Contrast: OPTIRAY 320. Reconstructions: Coronal 3-D MIP reconstructions. Sagittal and coronal. In accordance with CT protocol optimization, one or more of the following dose reduction techniques were utilized for this exam: automated exposure control, adjustment of mA and/or KV based on patient size, or use of iterative reconstructive technique. FINDINGS: Pulmonary Arteries: Diagnostic quality: Adequate through the segmental arteries. No evidence for acute or chronic pulmonary emboli. RV/LV is within normal limits. There is no interventricular septal bowing. There is no reflux of contrast material in the IVC. Lungs/Pleura: No consolidation, nodules, or edema. No effusions or pneumothorax. Mediastinum: Normal. No cardiac enlargement or adenopathy. Thoracic Aorta: Unremarkable. Upper Abdomen: Unremarkable. Other: None. IMPRESSION: Normal pulmonary CT angiogram. No pulmonary emboli. RADIA
[2020-01-11 17:50] VITALS: BP 124/77
== END 2020-01-11 17:48 | disposition home or self-care (01) ==
LOC: ED 14:35
DX: R07.89 Other chest pain (principal); R06.09 Other forms of dyspnea
CPT/HCPCS: 36415; 71045; 71275; 80053; 83690; 84484; 85025; 85379; 93005; 99283; 99284; Q9967

== ENCOUNTER 2020-03-19 10:00 | Emergency (ER) | payer MEDICAID ==
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
--- NOTE | 2020-03-19 10:54 | XRAY Report ---
Reason: needle into medial foot Procedure Date: 03/19/2020 Accession Number: [id number] / [id number] Procedure: XR - Foot 3 View RT CPT Code: Final Report FULL RESULT: PROCEDURE: Foot 3 View RT INDICATIONS: needle into medial foot TECHNIQUE: 3 views of the foot were acquired. COMPARISON: None FINDINGS: Bones: No fractures or dislocations. No suspicious bony lesions. Soft tissues: No tibiotalar joint effusion. Achilles tendon appears normal. Metallic needle with tip noted in the medial soft tissues of the foot adjacent to the distal first metatarsal. No soft tissue gas. IMPRESSION: 1. No fracture. No osseous lesion. If there is continued clinical concern for pathology, then repeat plain film radiographs (7-10 days) or advanced imaging (CT, MR, bone scan) should be considered for further evaluation. 2. Metallic needle foreign body embedded in the medial soft tissues of the foot adjacent to the distal first metatarsal. Reviewed by: Jess Babin MD, PhD on 03/19/2020 10:53 AM PDT Approved by: Jess Babin MD, PhD on 03/19/2020 10:53 AM PDT Station ID: [id number]
[2020-03-19 11:07] VITALS: BP 125/65
== END 2020-03-19 11:09 | disposition home or self-care (01) ==
LOC: ED 10:00
DX: S90.851A Superficial foreign body, right foot, initial encounter (principal); W45.8XXA Other foreign body or object entering through skin, initial encounter; Y93.01 Activity, walking, marching and hiking; Y92.009 Unspecified place in unspecified non-institutional (private) residence as the place of occurrence of the external cause
CPT/HCPCS: 99283; 99284